=== PATIENT | female | born 1990 | race African-American/Black ===

== ENCOUNTER 2017-07-05 04:16 | Emergency (ER) | payer MEDICAID, MEDICARE ==
[~2017-07-05] VITALS: Ht 162.6 cm; Wt 74.0 kg
[2017-07-05] MEDS ORDERED: CYCLOBENZAPRINE 10MG TABLET PO ONE (05:00)
[2017-07-05] MEDS ORDERED: KETOROLAC 30MG/ML VIAL IM ONE (05:00)
[2017-07-05] MEDS ORDERED: MORPHINE SULFATE 2 MG/ML CPJ (NOT FOR IM USE) IV SCH (06:00)
[2017-07-05] MEDS ORDERED: MORPHINE SULFATE 10 MG/ML CPJ IM ONE (06:00)
[2017-07-05 08:23] VITALS: BP 122/76
== END 2017-07-05 09:45 | disposition home or self-care (01) ==
LOC: ER 04:16
DX: S10.93XA Contusion of unspecified part of neck, initial encounter (principal); W19.XXXA Unspecified fall, initial encounter; Y93.89 Activity, other specified; Y92.89 Other specified places as the place of occurrence of the external cause; J45.909 Unspecified asthma, uncomplicated
CPT/HCPCS: 96372; 96374; 99284; J1885; J2270; Z7610

== ENCOUNTER 2021-03-06 00:22 | Emergency (ER) | payer MEDICARE ==
[~2021-03-06] VITALS: Ht 167.6 cm; Wt 77.0 kg
[2021-03-06 00:30] VITALS: BP 116/80
[2021-03-06] MEDS: ACETAMINOPHEN 325MG TABLET PO ONE (00:58)
[2021-03-06] MEDS ORDERED: CYCL25PO21 MT (01:07)
[2021-03-06] MEDS ORDERED: IBUP-2029 MT (01:07)
== END 2021-03-06 02:07 | disposition home or self-care (01) ==
LOC: ER 00:22
DX: S16.1XXA Strain of muscle, fascia and tendon at neck level, initial encounter (principal); F12.10 Cannabis abuse, uncomplicated; J45.909 Unspecified asthma, uncomplicated; Z98.890 Other specified postprocedural states; V43.52XA Car driver injured in collision with other type car in traffic accident, initial encounter; Y93.89 Activity, other specified; Y92.89 Other specified places as the place of occurrence of the external cause; Y99.8 Other external cause status
CPT/HCPCS: 81025; 99283